=== PATIENT | female | born 1945 | race Caucasian/White ===

== ENCOUNTER 2019-11-07 12:56 | Inpatient (IN) ==
[~2019-11-07 12:56] MED LIST: Acetaminophen IV 1,000 MG/100 ML BAG IVPB ONE; Famotidine 20 MG/2 ML VIAL IVP ONE
[2019-11-07] MEDS ORDERED: Ringers Solution, Lactated 1,000 ML IVC SCH ×2 (13:00→16:37)
[2019-11-07] MEDS ORDERED: Ethanol\\Acetic Acid\\Na Ace\\Ben 1,000 ML IRRIG.SOLN IR ONE (13:21)
[2019-11-07] MEDS ORDERED: Vancomycin 1,000 MG VIAL ONE (13:21)
[2019-11-07] MEDS ORDERED: diazePAM 5 MG TABLET PO ONE (13:24)
[2019-11-07] MEDS ORDERED: Dexamethasone 4 MG/ML VIAL ONE (13:35)
[2019-11-07] MEDS ORDERED: Lidocaine HCL 4 ML Topical Solution (Laryng-O-Jet Kit Sterile Pak) TP ONE (13:35)
[2019-11-07] MEDS ORDERED: Ondansetron 4 MG/2 ML VIAL ONE (13:35)
[2019-11-07] MEDS ORDERED: *HR* Succinylcholine 200 MG/10 ML VIAL IVP ONE (13:35)
[2019-11-07] MEDS ORDERED: Lidocaine -MPF 2% 2 ML VIAL ONE (13:35)
[2019-11-07] MEDS ORDERED: *HR* FentaNYL (PF) 100 MCG/2 ML VIAL ONE (13:35)
[2019-11-07] MEDS ORDERED: *HR* Propofol 200 MG/20 ML VIAL IVP ONE (13:35)
[2019-11-07] MEDS ORDERED: *HR* Midazolam HCl 2 MG/2 ML VIAL ONE (13:35)
[2019-11-07] MEDS ORDERED: Ropivacaine/PF 0.5% 30 ML VIAL ONE (13:42)
[2019-11-07] MEDS ORDERED: ROPIVACAINE/PF/NS 0.25% 1 EACH SYRINGE INTRAART ONE (13:42)
[2019-11-07] MEDS ORDERED: Vancomycin 1,250 MG/262.5 ML IV.SOLN IVPB ONE (13:53)
[2019-11-07] MEDS ORDERED: Famotidine 20 MG/2 ML VIAL ONE (14:04)
[2019-11-07] MEDS ORDERED: Acetaminophen IV 1,000 MG/100 ML BAG ONE (14:04)
[2019-11-07] MEDS ORDERED: *HR* Vasopressin 20 UNIT/ML VIAL ONE (14:22)
[2019-11-07] MEDS ORDERED: EPHEDrine 50 MG/ML VIAL ONE (14:38)
[2019-11-07] MEDS ORDERED: *HR* Labetalol 20 MG/4 ML SYRINGE IVP PRN (15:27)
[2019-11-07] MEDS ORDERED: Ondansetron 4 MG/2 ML VIAL IVP ONE (15:27)
[2019-11-07] MEDS ORDERED: *HR* Promethazine 25 MG/ML VIAL IVP PRN (15:27)
[2019-11-07] MEDS ORDERED: *HR* OxyCODONE Immed Rel 5 MG TABLET PO PRN ×2 (15:27→16:37)
[2019-11-07 16:19] LABS: Hematocrit 35.4 % (35.3-44.9); Hemoglobin 11.2 g/dL (11.5-15.4)
[2019-11-07] MEDS ORDERED: CeFAZolin 2 GM/120 ML BAG IVPB SCH (16:37)
[2019-11-07] MEDS ORDERED: Sennosides 8.6 MG TABLET PO PRN (16:37)
[2019-11-07] MEDS ORDERED: Naloxone 0.4 MG/ML INJ IVP PRN (16:37)
[2019-11-07] MEDS ORDERED: Ondansetron 4 MG/2 ML VIAL IVP PRN (16:37)
[2019-11-07] MEDS ORDERED: D5% in Water 1,000 ML IVC PRN (16:37)
[2019-11-07] MEDS ORDERED: *HR* OxyCODONE/APAP 5/325 TABLET PO PRN (16:37)
[2019-11-07] MEDS ORDERED: Dextrose Gel 15 GM/37.5 ML TUBE PO PRN ×2 (16:37)
[2019-11-07] MEDS ORDERED: MOM Conc 10 ML UD.LIQ PO PRN (16:37)
[2019-11-07] MEDS ORDERED: *HR* Dextrose 50 % in Water (Vial) 50 ML VIAL IVP PRN (16:37)
[2019-11-07] MEDS ORDERED: IBUPROFEN 400 MG PO PRN (16:37)
[2019-11-07] MEDS ORDERED: *HR* Enoxaparin 30 MG/0.3 ML SYRINGE SQ SCH (18:00)
[2019-11-07] MEDS: Insulin LISPRO 300 UNITS/3 ML VIAL SQ SCH (18:22)
[2019-11-07] MEDS: *HR* Enoxaparin 30 MG/0.3 ML SYRINGE SQ SCH (18:44)
[2019-11-07] MEDS: calcium polycarbophiL 625 MG TABLET PO SCH (20:34)
[2019-11-07] MEDS ORDERED: Insulin LISPRO 300 UNITS/3 ML VIAL SQ SCH (21:00)
[2019-11-07] MEDS ORDERED: Latanoprost 2.5 ML BOTTLE BOTH EYES SCH (21:00)
[2019-11-08] MEDS ORDERED: Vancomycin 1,250 MG/262.5 ML IV.SOLN IVPB ONE (02:00)
[2019-11-08 05:18] LABS: Hematocrit 33.9 % (35.3-44.9); Hemoglobin 10.8 g/dL (11.5-15.4)
[2019-11-08 05:36] LABS: BUN/Creatinine Ratio 22 (6-26); Blood Urea Nitrogen 20 mg/dL (8-23); Calcium 8.9 mg/dL (8.6-10.3); Carbon Dioxide 24 mEq/L (23-29); Chloride 105 mEq/L (98-107); Glucose 185 mg/dL (70-105); Osmolality,Calculated 289 (280-300); Potassium 4.3 mEq/L (3.5-5.1); Sodium 136 mEq/L (136-145); eGFR For African Americans > 60 (> 60); eGFR For Non-African Americans 59 (> 60)
[2019-11-08] MEDS: *HR* Enoxaparin 30 MG/0.3 ML SYRINGE SQ SCH (06:25)
[2019-11-08] MEDS ORDERED: Anastrozole 1 MG TABLET PO SCH (09:00)
[2019-11-08] MEDS ORDERED: BIOTIN 300 MCG PO SCH (09:00)
[2019-11-08] MEDS ORDERED: amLODIPine 5 MG TABLET PO SCH (09:00)
[2019-11-08] MEDS ORDERED: atenoloL 25 MG TABLET PO SCH (09:00)
[2019-11-08] MEDS ORDERED: COPPER PO SCH (09:00)
[2019-11-08] MEDS ORDERED: Cholecalciferol (D-3) 1,000 UNIT (25MCG) TABLET PO SCH (09:00)
[2019-11-08] MEDS ORDERED: [UNRECOGNIZED DRUG - OTHER] PO SCH (09:00)
[2019-11-08] MEDS ORDERED: MANGAN PO SCH (09:00)
[2019-11-08] MEDS ORDERED: D3 PO SCH (09:00)
[2019-11-08] MEDS ORDERED: ZINC PO SCH (09:00)
[2019-11-08] MEDS ORDERED: CALCIUM PO SCH (09:00)
[2019-11-08] MEDS: Insulin LISPRO 300 UNITS/3 ML VIAL SQ SCH (09:41)
[2019-11-08] MEDS: calcium polycarbophiL 625 MG TABLET PO SCH (09:47)
[2019-11-08 10:15] VITALS: BP 117/65
== END 2019-11-08 12:25 | disposition home or self-care (01) | DRG 483 ==
LOC: SAMDAY 12:56 → 3NENU 16:24
PROVIDERS: ADMIT Orthopaedic Surgery; ATTEND Orthopaedic Surgery